=== PATIENT | male | born 1975 | race Caucasian/White ===

== ENCOUNTER 2019-09-16 08:53 | Emergency (ER) | payer MEDICARE, MEDICAID, SELFPAY ==
[2019-09-16 08:54] VITALS: BP 151/108; PULSE 127; RESP 22; TEMP 36.9; O2SAT 96; BMI 22.9
--- NOTE | 2019-09-16 08:57 | ED_ITS ---
HPI - Psych <Barbara Knight MD - Last Filed: 09/16/19 19:53> General Chief Complaint: Psychiatric Symptoms Stated Complaint: Schizophrenic, SI Time Seen by Provider: 09/16/19 08:56 Source: EMS Mode of arrival: other Limitations: altered mental status History of Present Illness HPI Narrative: Patient is brought to the emergency department by EMS after being found to be acting strangely at his dad's house. Patient has a history of paranoid schizophrenia and is normally on medication for this; however, the medics report that the patient's family told them that the patient has not been on his medications recently. They are not sure exactly what medications the patient normally takes. The patient is not able to relate this either. The patient does admit to hearing voices, but is not able to specify whether they are telling him to harm himself or not. The medics state that the family told them that the patient was suicidal. According to family report, the patient is fairly functional and stable when he is on his medications. They are not sure exactly how long he has been off the medications, though they feel it has not been more than a month. Patient is not able to offer any further information other than that she is not hurting her feeling sick at this time. The family did note that the patient has not slept in a few days. Medics state that the patient was cooperative en route. Patient has a history of smoking, but denies any other substance abuse. Related Data Home Medications Medication Instructions Recorded Confirmed aripiprazole 30 mg PO DAILY 09/17/19 09/17/19 bupropion HCl 150 mg PO DIRECTED 09/17/19 09/17/19 gemfibrozil 600 mg PO DIRECTED 09/17/19 09/17/19 hydroxyzine HCl 25 mg PO DIRECTED 09/17/19 09/17/19 melatonin 3 mg PO BEDTIME 09/17/19 09/17/19 metformin 500 mg PO DAILY 09/17/19 09/17/19 quetiapine 100 mg PO DIRECTED 09/17/19 09/17/19 quetiapine 300 mg PO DIRECTED 09/17/19 09/17/19 Previous Rx's Medication Instructions Recorded cyclobenzaprine 10 mg tablet 10 mg PO BEDTIME #30 tab 05/29/19 Allergies Allergy/AdvReac Type Severity Reaction Status Date / Time No Known Drug Allergies Allergy Unverified 09/16/19 08:54 Review of Systems <Barbara Knight MD - Last Filed: 09/16/19 19:53> Constitutional Constitutional: Denies chills, Denies fatigue, Denies fever(s), Denies frequent falls, Denies lethargy and Denies weakness Eyes Eyes: Denies change in vision, Denies eye discharge, Denies irritation and Denies loss of vision ENT Ears, Nose, Mouth, and Throat: Denies change in voice, Denies dizziness, Denies neck pain, Denies sore throat and Denies throat swelling Cardiovascular Cardiovascular: Denies chest pain, Denies irregular heart rhythm, Denies lightheadedness, Denies palpitations, Denies dyspnea, Denies dyspnea on exertion and Denies orthopnea Respiratory Respiratory: Denies cough, Denies dyspnea, Denies dyspnea on exertion and Denies wheezing Gastrointestinal Gastrointestinal: Denies abdominal pain, Denies change in bowel habits, Denies diarrhea, Denies nausea and Denies vomiting Genitourinary Genitourinary: Denies hematuria, Denies flank pain, Denies urinary incontinence and Denies urinary urgency Musculoskeletal Musculoskeletal: Denies back pain, Denies muscle weakness, Denies neck pain, Denies numbness and Denies tingling Integumentary/Breasts Skin/Breast: Denies pruritus, Denies erythema, Denies rash and Denies wounds Neurologic Neurologic: Reports behavioral changes, Reports confusion, Denies dizziness, Denies frequent falls, Denies loss of vision, Denies numbness, Denies tingling and Denies weakness Psychiatric Psychiatric: Denies anxiety, Reports behavioral changes, Reports confusion, Denies depression, Denies homicidal ideation and Reports suicidal ideation Endocrine Endocrine: Denies fatigue, Denies flushing and Denies palpitations Hematologic/Lymphatic Hematologic/Lymphatic: Denies easy bruising Allergic/Immunologic Allergic/Immunologic: Denies urticaria, Denies throat swelling and Denies wheezing Patient History <Barbara Knight MD - Last Filed: 09/16/19 19:53> Medical History (Updated 09/17/19 @ 18:42 by Geni Rodriguez DO) Schizophrenia (Acute) Social History Smoking Status: Current every day smoker Smoking Status: Current every day smoker Exam <Barbara Knight MD - Last Filed: 09/16/19 19:53> Initial Vital Signs Initial Vital Signs: Vital Signs Temperature 98.5 F 09/16/19 08:54 Pulse Rate 127 H 09/16/19 08:54 Respiratory Rate 22 09/16/19 08:54 Blood Pressure 151/108 H 09/16/19 08:54 Pulse Oximetry 96 09/16/19 08:54 Const General: cooperative and well developed Nutritional Appearance: well nourished Orientation: alert and awake HENNH Head: normocephalic and atraumatic Ears: external ears normal and TM's normal bilaterally Nose: external nose normal and No nasal discharge Face and sinus: sinuses nontender, face symmetric, no sinus tenderness and No dry mucous membranes Mouth: oral mucosae normal and moist mucous membranes Teeth and gingiva: dentition normal Throat: tonsils normal and uvula midline Eyes General: appearance normal, both eyes and all related structures Eyelids: eyelids normal Conjunctivae: conjunctivae normal Sclera: sclerae normal Pupils: PERRL EOM: EOM intact bilaterally Neck Neck: normal visual inspection, trachea midline, No lymphadenopathy, No midline deformity and No JVD Lymphatic: No lymphedema Chest Chest: normal inspection of the chest Resp Effort & Inspection: normal respiratory effort, able to speak in complete sentences, no respiratory distress and no use of accessory muscles Auscultation: clear to auscultation bilaterally, no rales, no rhonchi and no wheezes Cardio Rate: regular rate Rhythm: regular rhythm Heart Sounds: no click, no gallops, no murmurs and no rubs Pulses: normal peripheral pulses GI Inspection: non-distended Palpation: soft Back/Spine/Pelvis Back: No CVA tenderness Cervical Spine: cervical ROM normal and No pain with cervical ROM Thoracic/Lumbar Spine: thoracic and lumbar spine normal to inspection Skin General: no rashes or lesions noted, No jaundice and No petechiae Neuro General: alert, awake, gait normal and no focal motor deficits Speech: speech normal Other: The patient stares off, but does make eye contact when spoken to. He is cooperative but appears internally agitated and is tremulous. When asked a question, he replies ?um? and trails off. He will occasionally answer ?yes? or ?no?. Extrem General: full ROM, no clubbing, cyanosis or edema, no pedal edema and no calf tenderness Psych Appearance: well kempt Mental Status: mental status grossly normal Attitude: cooperative Thought Content: normal and suicidality Judgment: judgment good <Nahed Godinez DO - Last Filed: 09/19/19 18:46> Initial Vital Signs Initial Vital Signs: Vital Signs Temperature 98.5 F 09/16/19 08:54 Pulse Rate 127 H 09/16/19 08:54 Respiratory Rate 22 09/16/19 08:54 Blood Pressure 151/108 H 09/16/19 08:54 Pulse Oximetry 96 09/16/19 08:54 <Geni Rodriguez DO - Last Filed: 09/17/19 18:43> Initial Vital Signs Initial Vital Signs: Vital Signs Temperature 98.5 F 09/16/19 08:54 Pulse Rate 127 H 09/16/19 08:54 Respiratory Rate 22 09/16/19 08:54 Blood Pressure 151/108 H 09/16/19 08:54 Pulse Oximetry 96 09/16/19 08:54 Course <Barbara Knight MD - Last Filed: 09/16/19 19:53> Course Course Narrative: Patient was evaluated by myself in the emergency department up on arrival with EMS and police. He was actually quite cooperative, and did not require any restraints or sedatives. We did get the patient's records from the [facility], and I did give the patient doses of his Abilify and Seroquel that he had been put on on his last admission at the [facility]. The patient did not really show any improvement after administration these medications and I did have social work evaluate the patient. [facility] Patient's parents were present to give information and were agreeable to this plan. Patient is signed out to Dr. Godinez pending final acceptance of the patient for inpatient psychiatric treatment the [facility] tomorrow morning. Orders Ordered: Discontinued Medications Aripiprazole (Abilify) 30 mg PO NOW ONE Stop: 09/16/19 12:33 Last Admin: 09/16/19 12:49 Dose: 30 mg Documented by: KARINA Aripiprazole (Abilify) 30 mg PO DAILY VICKIE Last Admin: 09/17/19 08:55 Dose: 30 mg Documented by: SCANLINDSAYO Sodium Chloride (Normal Saline 0.9%) 1,000 mls @ 1,000 mls/hr IV BOLUS ONE Stop: 09/17/19 12:25 Last Infusion: 09/17/19 14:03 Dose: 0 mls/hr Documented by: Admin: 09/17/19 11:57 Dose: 1,000 mls/hr Documented by: ISATU Quetiapine Fumarate (Seroquel) 75 mg PO NOW ONE Stop: 09/16/19 12:33 Last Admin: 09/16/19 12:49 Dose: 75 mg Documented by: KARINA Quetiapine Fumarate (Seroquel) 75 mg PO DAILY [facility] Last Admin: 09/17/19 08:55 Dose: 75 mg Documented by: KARINA Vital Signs Vital signs: Vital Signs - 8 hr 09/17/19 11:15 09/17/19 14:06 09/17/19 18:02 Temperature 97.5 F L 98.7 F Pulse Rate 98 H 101 H Pulse Rate [Orthostatic Lying] 113 H Pulse Rate [Orthostatic Sitting] 117 H Pulse Rate [Orthostatic Standing] 131 H Respiratory Rate 16 19 Blood Pressure [Left Arm] 118/75 137/96 H Blood Pressure [Orthostatic Lying] 138/83 Blood Pressure [Orthostatic Sitting] 136/90 Blood Pressure [Orthostatic Standing] 122/90 Pulse Oximetry 99 98 <Nahed Godinez, - Last Filed: 09/19/19 18:46> Orders Ordered: Discontinued Medications Aripiprazole (Abilify) 30 mg PO NOW ONE Stop: 09/16/19 12:33 Last Admin: 09/16/19 12:49 Dose: 30 mg Documented by: KARINA Aripiprazole (Abilify) 30 mg PO DAILY [facility] Last Admin: 09/17/19 08:55 Dose: 30 mg Documented by: KARINA Sodium Chloride (Normal Saline 0.9%) 1,000 mls @ 1,000 mls/hr IV BOLUS ONE Stop: 09/17/19 12:25 Last Infusion: 09/17/19 14:03 Dose: 0 mls/hr Documented by: Admin: 09/17/19 11:57 Dose: 1,000 mls/hr Documented by: ISATU Quetiapine Fumarate (Seroquel) 75 mg PO NOW ONE Stop: 09/16/19 12:33 Last Admin: 09/16/19 12:49 Dose: 75 mg Documented by: KARINA Quetiapine Fumarate (Seroquel) 75 mg PO DAILY [facility] Last Admin: 09/17/19 08:55 Dose: 75 mg Documented by: KARINA Vital Signs Vital signs: Vital Signs - 8 hr 09/17/19 11:15 09/17/19 14:06 09/17/19 18:02 Temperature 97.5 F L 98.7 F Pulse Rate 98 H 101 H Pulse Rate [Orthostatic Lying] 113 H Pulse Rate [Orthostatic Sitting] 117 H Pulse Rate [Orthostatic Standing] 131 H Respiratory Rate 16 19 Blood Pressure [Left Arm] 118/75 137/96 H Blood Pressure [Orthostatic Lying] 138/83 Blood Pressure [Orthostatic Sitting] 136/90 Blood Pressure [Orthostatic Standing] 122/90 Pulse Oximetry 99 98 <Geni Rodriguez DO - Last Filed: 09/17/19 18:43> Orders Ordered: Discontinued Medications Aripiprazole (Abilify) 30 mg PO NOW ONE Stop: 09/16/19 12:33 Last Admin: 09/16/19 12:49 Dose: 30 mg Documented by: KARINA Aripiprazole (Abilify) 30 mg PO DAILY [facility] Last Admin: 09/17/19 08:55 Dose: 30 mg Documented by: KARINA Sodium Chloride (Normal Saline 0.9%) 1,000 mls @ 1,000 mls/hr IV BOLUS ONE Stop: 09/17/19 12:25 Last Infusion: 09/17/19 14:03 Dose: 0 mls/hr Documented by: Admin: 09/17/19 11:57 Dose: 1,000 mls/hr Documented by: ISATU Quetiapine Fumarate (Seroquel) 75 mg PO NOW ONE Stop: 09/16/19 12:33 Last Admin: 09/16/19 12:49 Dose: 75 mg Documented by: KARINA Quetiapine Fumarate (Seroquel) 75 mg PO DAILY [facility] Last Admin: 09/17/19 08:55 Dose: 75 mg Documented by: KARINA Vital Signs Vital signs: Vital Signs - 8 hr 09/17/19 11:15 09/17/19 14:06 09/17/19 18:02 Temperature 97.5 F L 98.7 F Pulse Rate 98 H 101 H Pulse Rate [Orthostatic Lying] 113 H Pulse Rate [Orthostatic Sitting] 117 H Pulse Rate [Orthostatic Standing] 131 H Respiratory Rate 16 19 Blood Pressure [Left Arm] 118/75 137/96 H Blood Pressure [Orthostatic Lying] 138/83 Blood Pressure [Orthostatic Sitting] 136/90 Blood Pressure [Orthostatic Standing] 122/90 Pulse Oximetry 99 98 MDM - Psych <Barbara Knight MD - Last Filed: 09/16/19 19:53> Medical Records Attestation: I reviewed the patient's medical records. Lab Data Attestation: I reviewed the patient's lab results. Result diagrams: 09/16/19 09:18 09/16/19 09:18 Labs: Lab Results 09/16/19 09/16/19 09/16/19 Range/Units 09:18 09:18 09:18 WBC 9.6 (4.5-11.0) X10^3/uL RBC 5.98 H (4.5-5.9) X10^6/uL Hgb 19.9 H (13.5-17.5) g/dL Hct 55.5 H (41-53) % MCV 92.9 (80-100) fL MCH 33.3 (26-34) PG MCHC 35.8 (30-36) % RDW 12.8 (11.6-14.8) % Plt Count 243 (150-400) X10^3/uL Neut % (Auto) 78.3 H (50-75) % Lymph % (Auto) 12.3 L (25-40) % [place] % (Auto) 9.0 (3-14) % Eos % (Auto) 0.1 L (2-4) % Baso % (Auto) 0.3 (0-2) % Neut # (Auto) 7500 H (0018-8027) /uL Lymph # (Auto) 1200 (5126-5255) /uL [place] # (Auto) 900 (0-900) /uL Eos # (Auto) 0 (0-450) /uL Baso # (Auto) 0 (0-100) /uL Sodium 139 (137-145) mmol/L Potassium 3.8 (3.4-5.1) mmol/L Chloride 97 L (98-107) mmol/L Carbon Dioxide 22 (22-32) mmol/L BUN 21 H (9-20) mg/dL Creatinine 0.90 (0.66-1.25) mg/dL Estimated GFR > 60.0 (>60) mL/min BUN/Creatinine Ratio 23.3 H (6-22) Glucose 189 H (70-100) mg/dL Calcium 10.4 H (8.4-10.2) mg/dL Total Bilirubin 1.8 H (0.2-1.3) mg/dL AST 39 (17-59) IU/L ALT 25 (<50) IU/L Alkaline Phosphatase 100 (38-126) U/L Total Protein 8.5 H (6.3-8.2) g/dL Albumin 5.5 H (3.5-5.0) g/dL Globulin 3.0 (1.7-4.1) g/dL Albumin/Globulin Ratio 1.8 (1.0-2.8) TSH 1.38 (0.47-4.68) uIU/mL U Morph 300 ng/mL cutoff (Negative) Ur Oxycodone Screen (Negative) Urine Methadone Screen (Negative) Ur Barbiturates Screen (Negative) U Tricyclic Antidepress (Negative) Ur Phencyclidine Scrn (Negative) Ur Amphetamines Screen (Negative) U Methamphetamines Scrn (Negative) Ur MDMA Scrn (Ecstasy) (Negative) U Benzodiazepines Scrn (Negative) [place] < 0.2 L (0.6-1.2) mmol/L Urine Cocaine Screen (Negative) U Marijuana (THC) Screen (Negative) Ethyl Alcohol < 10 ( - 10) mg/dL 09/16/19 Range/Units 10:05 WBC (4.5-11.0) X10^3/uL RBC (4.5-5.9) X10^6/uL Hgb (13.5-17.5) g/dL Hct (41-53) % MCV (80-100) fL MCH (26-34) PG MCHC (30-36) % RDW (11.6-14.8) % Plt Count (150-400) X10^3/uL Neut % (Auto) (50-75) % Lymph % (Auto) (25-40) % [place] % (Auto) (3-14) % Eos % (Auto) (2-4) % Baso % (Auto) (0-2) % Neut # (Auto) (8999-8170) /uL Lymph # (Auto) (6496-3499) /uL [place] # (Auto) (0-900) /uL Eos # (Auto) (0-450) /uL Baso # (Auto) (0-100) /uL Sodium (137-145) mmol/L Potassium (3.4-5.1) mmol/L Chloride (98-107) mmol/L Carbon Dioxide (22-32) mmol/L BUN (9-20) mg/dL Creatinine (0.66-1.25) mg/dL Estimated GFR (>60) mL/min BUN/Creatinine Ratio (6-22) Glucose (70-100) mg/dL Calcium (8.4-10.2) mg/dL Total Bilirubin (0.2-1.3) mg/dL AST (17-59) IU/L ALT (<50) IU/L Alkaline Phosphatase (38-126) U/L Total Protein (6.3-8.2) g/dL Albumin (3.5-5.0) g/dL Globulin (1.7-4.1) g/dL Albumin/Globulin Ratio (1.0-2.8) TSH (0.47-4.68) uIU/mL U Morph 300 ng/mL cutoff Negative (Negative) Ur Oxycodone Screen Negative (Negative) Urine Methadone Screen Negative (Negative) Ur Barbiturates Screen Negative (Negative) U Tricyclic Antidepress Positive H (Negative) Ur Phencyclidine Scrn Negative (Negative) Ur Amphetamines Screen Negative (Negative) U Methamphetamines Scrn Negative (Negative) Ur MDMA Scrn (Ecstasy) Negative (Negative) U Benzodiazepines Scrn Negative (Negative) [place] (0.6-1.2) mmol/L Urine Cocaine Screen Negative (Negative) U Marijuana (THC) Screen Negative (Negative) Ethyl Alcohol ( - 10) mg/dL <Nahed Godinez, - Last Filed: 09/19/19 18:46> Lab Data Attestation: I reviewed the patient's lab results. Labs: Lab Results 09/16/19 09/16/19 09/16/19 Range/Units 09:18 09:18 09:18 WBC 9.6 (4.5-11.0) X10^3/uL RBC 5.98 H (4.5-5.9) X10^6/uL Hgb 19.9 H (13.5-17.5) g/dL Hct 55.5 H (41-53) % MCV 92.9 (80-100) fL MCH 33.3 (26-34) PG MCHC 35.8 (30-36) % RDW 12.8 (11.6-14.8) % Plt Count 243 (150-400) X10^3/uL Neut % (Auto) 78.3 H (50-75) % Lymph % (Auto) 12.3 L (25-40) % [place] % (Auto) 9.0 (3-14) % Eos % (Auto) 0.1 L (2-4) % Baso % (Auto) 0.3 (0-2) % Neut # (Auto) 7500 H (2671-6248) /uL Lymph # (Auto) 1200 (5723-6238) /uL [place] # (Auto) 900 (0-900) /uL Eos # (Auto) 0 (0-450) /uL Baso # (Auto) 0 (0-100) /uL Sodium 139 (137-145) mmol/L Potassium 3.8 (3.4-5.1) mmol/L Chloride 97 L (98-107) mmol/L Carbon Dioxide 22 (22-32) mmol/L BUN 21 H (9-20) mg/dL Creatinine 0.90 (0.66-1.25) mg/dL Estimated GFR > 60.0 (>60) mL/min BUN/Creatinine Ratio 23.3 H (6-22) Glucose 189 H (70-100) mg/dL Calcium 10.4 H (8.4-10.2) mg/dL Total Bilirubin 1.8 H (0.2-1.3) mg/dL AST 39 (17-59) IU/L ALT 25 (<50) IU/L Alkaline Phosphatase 100 (38-126) U/L Total Protein 8.5 H (6.3-8.2) g/dL Albumin 5.5 H (3.5-5.0) g/dL Globulin 3.0 (1.7-4.1) g/dL Albumin/Globulin Ratio 1.8 (1.0-2.8) TSH 1.38 (0.47-4.68) uIU/mL U Morph 300 ng/mL cutoff (Negative) Ur Oxycodone Screen (Negative) Urine Methadone Screen (Negative) Ur Barbiturates Screen (Negative) U Tricyclic Antidepress (Negative) Ur Phencyclidine Scrn (Negative) Ur Amphetamines Screen (Negative) U Methamphetamines Scrn (Negative) Ur MDMA Scrn (Ecstasy) (Negative) U Benzodiazepines Scrn (Negative) [place] < 0.2 L (0.6-1.2) mmol/L Urine Cocaine Screen (Negative) U Marijuana (THC) Screen (Negative) Ethyl Alcohol < 10 ( - 10) mg/dL 09/16/19 Range/Units 10:05 WBC (4.5-11.0) X10^3/uL RBC (4.5-5.9) X10^6/uL Hgb (13.5-17.5) g/dL Hct (41-53) % MCV (80-100) fL MCH (26-34) PG MCHC (30-36) % RDW (11.6-14.8) % Plt Count (150-400) X10^3/uL Neut % (Auto) (50-75) % Lymph % (Auto) (25-40) % [place] % (Auto) (3-14) % Eos % (Auto) (2-4) % Baso % (Auto) (0-2) % Neut # (Auto) (9813-5070) /uL Lymph # (Auto) (2365-0338) /uL [place] # (Auto) (0-900) /uL Eos # (Auto) (0-450) /uL Baso # (Auto) (0-100) /uL Sodium (137-145) mmol/L Potassium (3.4-5.1) mmol/L Chloride (98-107) mmol/L Carbon Dioxide (22-32) mmol/L BUN (9-20) mg/dL Creatinine (0.66-1.25) mg/dL Estimated GFR (>60) mL/min BUN/Creatinine Ratio (6-22) Glucose (70-100) mg/dL Calcium (8.4-10.2) mg/dL Total Bilirubin (0.2-1.3) mg/dL AST (17-59) IU/L ALT (<50) IU/L Alkaline Phosphatase (38-126) U/L Total Protein (6.3-8.2) g/dL Albumin (3.5-5.0) g/dL Globulin (1.7-4.1) g/dL Albumin/Globulin Ratio (1.0-2.8) TSH (0.47-4.68) uIU/mL U Morph 300 ng/mL cutoff Negative (Negative) Ur Oxycodone Screen Negative (Negative) Urine Methadone Screen Negative (Negative) Ur Barbiturates Screen Negative (Negative) U Tricyclic Antidepress Positive H (Negative) Ur Phencyclidine Scrn Negative (Negative) Ur Amphetamines Screen Negative (Negative) U Methamphetamines Scrn Negative (Negative) Ur MDMA Scrn (Ecstasy) Negative (Negative) U Benzodiazepines Scrn Negative (Negative) [place] (0.6-1.2) mmol/L Urine Cocaine Screen Negative (Negative) U Marijuana (THC) Screen Negative (Negative) Ethyl Alcohol ( - 10) mg/dL MDM Narrative Medical decision making narrative: Patient signed out to myself by Dr. Knight. Patient seen and evaluated by myself. Patient alert, walking around room. He does seem to have a lot of internal stimuli, very few word answers. I did update him on the plan for overnight. We also discussed if he needs any other medications which he defers. He did have his regular medications earlier today. Patient has been cooperative throughout stay. Patient does seem to be gravely disabled but voluntary at this time. Per Dr. Knight/social work plan there is supposed to be a bed available at the [facility] in the morning. Social work to see again after 7am. Secondary option is [facility]. Patient signed out to Dr. Rodriguez. <Geni Rodriguez, DO - Last Filed: 09/17/19 18:43> Lab Data Labs: Lab Results 09/16/19 09/16/19 09/16/19 Range/Units 09:18 09:18 09:18 WBC 9.6 (4.5-11.0) X10^3/uL RBC 5.98 H (4.5-5.9) X10^6/uL Hgb 19.9 H (13.5-17.5) g/dL Hct 55.5 H (41-53) % MCV 92.9 (80-100) fL MCH 33.3 (26-34) PG MCHC 35.8 (30-36) % RDW 12.8 (11.6-14.8) % Plt Count 243 (150-400) X10^3/uL Neut % (Auto) 78.3 H (50-75) % Lymph % (Auto) 12.3 L (25-40) % [place] % (Auto) 9.0 (3-14) % Eos % (Auto) 0.1 L (2-4) % Baso % (Auto) 0.3 (0-2) % Neut # (Auto) 7500 H (7497-8540) /uL Lymph # (Auto) 1200 (1793-2631) /uL [place] # (Auto) 900 (0-900) /uL Eos # (Auto) 0 (0-450) /uL Baso # (Auto) 0 (0-100) /uL Sodium 139 (137-145) mmol/L Potassium 3.8 (3.4-5.1) mmol/L Chloride 97 L (98-107) mmol/L Carbon Dioxide 22 (22-32) mmol/L BUN 21 H (9-20) mg/dL Creatinine 0.90 (0.66-1.25) mg/dL Estimated GFR > 60.0 (>60) mL/min BUN/Creatinine Ratio 23.3 H (6-22) Glucose 189 H (70-100) mg/dL Calcium 10.4 H (8.4-10.2) mg/dL Total Bilirubin 1.8 H (0.2-1.3) mg/dL AST 39 (17-59) IU/L ALT 25 (<50) IU/L Alkaline Phosphatase 100 (38-126) U/L Total Protein 8.5 H (6.3-8.2) g/dL Albumin 5.5 H (3.5-5.0) g/dL Globulin 3.0 (1.7-4.1) g/dL Albumin/Globulin Ratio 1.8 (1.0-2.8) TSH 1.38 (0.47-4.68) uIU/mL U Morph 300 ng/mL cutoff (Negative) Ur Oxycodone Screen (Negative) Urine Methadone Screen (Negative) Ur Barbiturates Screen (Negative) U Tricyclic Antidepress (Negative) Ur Phencyclidine Scrn (Negative) Ur Amphetamines Screen (Negative) U Methamphetamines Scrn (Negative) Ur MDMA Scrn (Ecstasy) (Negative) U Benzodiazepines Scrn (Negative) [place] < 0.2 L (0.6-1.2) mmol/L Urine Cocaine Screen (Negative) U Marijuana (THC) Screen (Negative) Ethyl Alcohol < 10 ( - 10) mg/dL 09/16/19 Range/Units 10:05 WBC (4.5-11.0) X10^3/uL RBC (4.5-5.9) X10^6/uL Hgb (13.5-17.5) g/dL Hct (41-53) % MCV (80-100) fL MCH (26-34) PG MCHC (30-36) % RDW (11.6-14.8) % Plt Count (150-400) X10^3/uL Neut % (Auto) (50-75) % Lymph % (Auto) (25-40) % [place] % (Auto) (3-14) % Eos % (Auto) (2-4) % Baso % (Auto) (0-2) % Neut # (Auto) (2725-3271) /uL Lymph # (Auto) (6461-5704) /uL [place] # (Auto) (0-900) /uL Eos # (Auto) (0-450) /uL Baso # (Auto) (0-100) /uL Sodium (137-145) mmol/L Potassium (3.4-5.1) mmol/L Chloride (98-107) mmol/L Carbon Dioxide (22-32) mmol/L BUN (9-20) mg/dL Creatinine (0.66-1.25) mg/dL Estimated GFR (>60) mL/min BUN/Creatinine Ratio (6-22) Glucose (70-100) mg/dL Calcium (8.4-10.2) mg/dL Total Bilirubin (0.2-1.3) mg/dL AST (17-59) IU/L ALT (<50) IU/L Alkaline Phosphatase (38-126) U/L Total Protein (6.3-8.2) g/dL Albumin (3.5-5.0) g/dL Globulin (1.7-4.1) g/dL Albumin/Globulin Ratio (1.0-2.8) TSH (0.47-4.68) uIU/mL U Morph 300 ng/mL cutoff Negative (Negative) Ur Oxycodone Screen Negative (Negative) Urine Methadone Screen Negative (Negative) Ur Barbiturates Screen Negative (Negative) U Tricyclic Antidepress Positive H (Negative) Ur Phencyclidine Scrn Negative (Negative) Ur Amphetamines Screen Negative (Negative) U Methamphetamines Scrn Negative (Negative) Ur MDMA Scrn (Ecstasy) Negative (Negative) U Benzodiazepines Scrn Negative (Negative) [place] (0.6-1.2) mmol/L Urine Cocaine Screen Negative (Negative) U Marijuana (THC) Screen Negative (Negative) Ethyl Alcohol ( - 10) mg/dL MDM Narrative Medical decision making narrative: Patient signed out to me by Dr. Godinez. Seen evaluated he has overall been very cooperative and no trouble in the emergency department. [facility] concerned with her persistent tachycardia requested EKG orthostatics. Orthostatics were positive he had increased heart rate he was given an IV and normal saline which did improve his heart rate significantly patient was finally accepted at the [facility] arrangements were made by the [facility] for [facility] at 8:00 p.m.. Discharge Plan Departure Patient Disposition: Xfer Psychiatric Hosp Clinical Impression: Schizophrenia Qualifiers: Schizophrenia type: unspecified Qualified Code(s): F20.9 - Schizophrenia, unspecified Discharge Date/Time: 09/17/19 19:59
[2019-09-16 09:29] LABS: Add Manual Diff / Slide Review NO; Basophils Absolute Auto 0 /uL (0-100); Basophils Percent Auto 0.3 % (0-2); Eosinophils Absolute Auto 0 /uL (0-450); Eosinophils Percent Auto 0.1 % (2-4); Hematocrit 55.5 % (41-53); Hemoglobin 19.9 g/dL (13.5-17.5); Lymphocytes Absolute Auto 1200 /uL (1100-4500); Lymphocytes Percent Auto 12.3 % (25-40); Mean Corpuscular HGB Conc 35.8 % (30-36); Mean Corpuscular Hemoglobin 33.3 PG (26-34); Mean Corpuscular Volume 92.9 fL (80-100); Monocytes Absolute Auto 900 /uL (0-900); Neutrophils Absolute Auto 7500 /uL (1500-7000); Neutrophils Percent Auto 78.3 % (50-75); Platelet Count 243 X10^3/uL (150-400); Red Blood Cell Count 5.98 X10^6/uL (4.5-5.9); Red Cell Distribution Width 12.8 % (11.6-14.8); White Blood Cell Count 9.6 X10^3/uL (4.5-11.0)
[2019-09-16 09:36] LABS: Alanine Aminotransferase 25 IU/L (<50); Albumin 5.5 g/dL (3.5-5.0); Albumin Globulin Ratio 1.8 (1.0-2.8); Alkaline Phosphatase 100 U/L (38-126); Aspartate Aminotransferase 39 IU/L (17-59); BUN Creatinine Ratio 23.3 (6-22); Bilirubin Total 1.8 mg/dL (0.2-1.3); Blood Urea Nitrogen 21 mg/dL (9-20); Calcium 10.4 mg/dL (8.4-10.2); Carbon Dioxide 22 mmol/L (22-32); Chloride 97 mmol/L (98-107); Estimated Glomerular Filt Rate > 60.0 mL/min (>60); Ethanol (ETOH) < 10 mg/dL; Glucose 189 mg/dL (70-100); HEMOLYSIS < 15 (0-50); Potassium 3.8 mmol/L (3.4-5.1); Sodium 139 mmol/L (137-145); Total Protein 8.5 g/dL (6.3-8.2)
[2019-09-16 09:54] LABS: Lithium < 0.2 mmol/L (0.6-1.2)
[2019-09-16 10:12] LABS: Thyroid Stimulating Hormone 1.38 uIU/mL (0.47-4.68)
[2019-09-16 10:15] LABS: UR Morphine/Opiate cutoff 300 Negative (Negative); Ur Creatinine 50 (Normal); Ur Specific Gravity 1.025 (Normal); Urine Amphetamines Negative (Negative); Urine Barbiturates Negative (Negative); Urine Benzodiazepines Negative (Negative); Urine Cocaine Negative (Negative); Urine MDMA Negative (Negative); Urine Methadone Negative (Negative); Urine Methamphetamines Negative (Negative); Urine Phencyclidine Negative (Negative); Urine Tetrahydrocannabinol Negative (Negative); Urine pH 5 (Normal)
[2019-09-16 10:16] LABS: Urine Oxycodone Negative (Negative); Urine Tricyclic Antidepressant Positive (Negative)
--- NOTE | 2019-09-16 10:19 | PC.NURSE ---
pts dad Burton at bedside. Burton reports pt acting strange for the past few days. pt complaining to his dad that he is hearing torture music by amelia clemente. pt reported to Burton that he has not taken his medications for about 6 days. dad also reports pt was inpatient at [facility] for 2 weeks about 6 months ago.
[2019-09-16] MEDS: QUETIAPINE 25 MG TABLET 75 MG PO (12:49)
[2019-09-16] MEDS: ARIPiprazole 10 MG TABLET 30 MG PO (12:49)
--- NOTE | 2019-09-16 15:03 | CM.SWNOTE ---
BULLDOZER PRESS OPERATOR/Note: Received request from ED/MD Dr. Carbajal requesting BULLDOZER PRESS OPERATOR consult for this 44yr old male whom came to [facility] via EMS with psychiatric symptoms. Patient currently placed in room #13. Reviewed notes from ED provider and from last inpatient psychiatric hospitalization at [facility] in [place]. Patient and family report that patient stopped taking his psychiatric medications about 6dys ago. Father/Burton reports that he found out about this when patient's behavior had changed and he has not slept for the last 3dys. Family reports when patient is actively taking his medications he is very functioning. Patient lives in apartment and drives when stable. Last inpatient psychiatric placement was in December 2018. Family reports that patient receives all psychiatric care from the [facility] in [place] and [place]. BULLDOZER PRESS OPERATOR attempted to meet with patient to explain role. Patient pacing in room and unable to give direct eye contact. Patient admits to hearing Hudam Husan over load speaker/surround sound. Patient unable to give full answers to questions being asked. Patient cannot give BULLDOZER PRESS OPERATOR clear answer on whether or not he was suicidal. However, patient agreeable to inpatient medication stabilization. MD shaffer and СЕРГЕЙ/Marcela attempting placement this pm at [facility]. Family aware that is no bed available at [facility] by tomorrow will need to attempt other placement options. P: [facility] and would be best suited to obtain placement [facility]. WADE Santo BULLDOZER PRESS OPERATOR - Education Sales Consultant Assessment BULLDOZER PRESS OPERATOR - Education Sales Consultant Assessment Start: 09/16/19 14:43 Freq: Status: Active Protocol: Document 09/16/19 14:44 KJS (Rec: 09/16/19 15:03 KJS [id number]) BULLDOZER PRESS OPERATOR/Education Sales Consultant Assessment Time Spent with Patient Start date 09/16/19 Visit Start Time 14:44 Total time Care Management spent on 90 minutes patient visit-in minutes Mental Health Screening Include Onset, Duration, Intensity Presenting Problem Psychiatric Symptoms Precipitating Event(s) Paranoid schizophrenic episodes. Currently having hallucinations. Current Behavioral Health Provider(s) [facility] [place] Sees Include Facility, Provider, Ph. # every 3 months, name unknown? Psych. Hx Mental Health and Chemical Previous psychiatric Dependency hospitalization from 12-25-18 thru 01-09-19 at [facility]. Family Hx of Behavioral Abuse None known Psychiatric Hospitalizations (date(s)/ [facility] 12-25-18 thru 01-09-19 location) Support System(s) Danny Augustin phone# [phone] or [phone] School/Work None Substance Abuse Screening Include Onset, Duration, Intensity Presenting Problem Patient actively having hallucinations and decompensation after he stopped taking psychiatric medications approximately 6 days ago. Precipitating Event(s) Unclear. Patient difficult to assess due to inability to concentrate. Patient reports hearing music (Hudam Husan) playing over loud speaker/ surround sound. Current Behavioral Health Provider(s) [facility] Include Facility, Provider, Ph. # Rehab Facilities? ((Date(s), Location(s) See above/[place] [facility]. ) History of Withdrawal? Seizures? No Longest Period of Sobriety Unknown Psychosocial Information Lives alone and is very high functioning when he takes his pychiatric medicaitons. Per family, patient drives at baseline. Legal Concerns Legal Matters - Outstanding Issues Unknown Mental Status Orientation (Person/Place/Time) No Affect Mood flat. Patient appears very restless. Significant distraction related to his auditory hallucinations Thought Content - Specify/Describe Hallucinations Obsessions, Delusions, Hallucinations Thought Processes (Pgpefkc-Cdkjewhm-Ljas Disorganized secondary Mxjwiway-Zpprzomv-Nhkaqljegy- hallucinations. Wdrppgqyahbbvw-Qtwfvfk-Peqzpotrckgw- Thought Blocking) Speech (Zarbam-Dine-Trdvjkg-Rapid-Soft- Slow Loud-Pressured) Motor (Pfylsb-Yfmafdjdb-Kurh-Other) Slow Insight (Present-Partially Present- Impaired Impaired) Judgement (Intact-Impaired) Impaired Impulse Control (Adequate-Impaired) Unknown at this time. Memory (Fiyjswcel-Jpwoea-Czholg, Impaired Impaired-Intact) Concentration (Intact-Impaired) Impaired Attention (Intact-Impaired) Impaired Behavior (Appropriate-Inappropriate) Inappropriate pacing around room. Unable to sleep x3dys. Risk Assessment Suicidal Ideation (Plan) Unknown unable to determine Homicidal Ideation (Plan) No Comment Patient does agree to inpatient psychiatric placement for medication stablization. All prior services have been received at [facility] therefore, placement at [facility] will be prioroity for continuity of care. Intervention Intervention Attempting voluntary psychiatric placement at [facility] facility.
[2019-09-16 16:00] VITALS: BP 126/91; PULSE 135; RESP 16; O2SAT 99
--- NOTE | 2019-09-16 17:46 | CM.SWNOTE ---
CM/clinical services specialist note continued: CM/RN Sent clinicals to [facility] emergency Psychiatric care to review for possible inpatient placement. [facility] social media marketing manager called CM/RN back to let us know they are not able to accept the patient tonight do to lack of staffing and bed availability but believes they will be able to accept the patient in the morning 09/17/2019 for voluntary inpatient treatment. Nahed Moreno rail signal worker for psychiatric admissions will be available at 7am tomorrow to review patients clinicals and accept patient for treatment. Phone number is [phone]. CM/RN will let WADE Dominguez know to contact the VA in the morning when she arrives at 7:45am to determine plan for placement with the [facility] in [place]. CM/RN contacted patients mother Divina and let her know what the [facility] said about possible placement. Patients mother and father would like WADE dominguez to call them in the morning and keep them updated. Marcela Cunningham RN
[2019-09-16 23:28] VITALS: BP 132/92; PULSE 130; RESP 18; TEMP 36.6; O2SAT 96
[2019-09-17 06:08] VITALS: BP 127/92; PULSE 111; RESP 18; O2SAT 98
[2019-09-17 08:25] VITALS: BP 144/99; PULSE 115; RESP 18; TEMP 36.3; O2SAT 98
[2019-09-17] MEDS: ARIPiprazole 10 MG TABLET 30 MG PO (08:55)
[2019-09-17] MEDS: QUETIAPINE 25 MG TABLET 75 MG PO (08:55)
--- NOTE | 2019-09-17 09:23 | CM.SWNOTE ---
WADE Note: Reviewed evening notes. Patients remains in Emergency Department room#13. Placed call to [facility] psychiatric admit line [phone], spoke with Nahed. She reports that [facility] provider will review the information at 9:00AM. They do have beds but patient has not yet been accepted. Nahed from [facility] faxed consent form to be signed by patient and returned. She is also requesting to speak with patient regarding his voluntary status. Both completed. Met with patient and father/Burton updating them on the above. If accepted, Dr. Hien Alves will be accepting MD and [facility] will coordinate transport. P: Awaiting final acceptance from [facility] inpatient psychiatric care for bed. WADE Santo
[2019-09-17 10:31] VITALS: BP 139/96; PULSE 110; RESP 18; TEMP 37.2; O2SAT 97
[2019-09-17 11:15] VITALS: BP 122/90; BP 136/90; BP 138/83; PULSE 113; PULSE 117; PULSE 131
[2019-09-17] MEDS: SODIUM CHLORIDE 0.9% 1,000 ML 1000 ML IV (11:57)
[2019-09-17 14:06] VITALS: BP 118/75; PULSE 98; RESP 16; TEMP 36.4; O2SAT 99
--- NOTE | 2019-09-17 15:19 | CM.SWNOTE ---
GREY WASHER Note: Reviewed chart. Spoke with Dr. Rodriguez this AM. She reports patient medically stable for transfer to inpatient psychiatric hospital. Per notes, [facility] [place] expecting to have bed this AM. Dr. Hien Alves accepting physician. Placed call to [facility] and spoke with Nahed. She reports that MD will review for admit at approximately 9:00am. Updated clinical faxed per Nahed's request. Received return phone call from [facility] requesting EKG, and updated vitals faxed to [facility]. Faxed both and received call back indicating that they have medical concerns accepting patient with current blood pressures. Dr. Rodriguez notified and placed call to [facility] to discuss with provider. IV fluids provided to patient and within a few hours BP normalized. Received final call from [facility] around 1:30pm. They have accepted patient for today. Transport to be arranged by [facility]. supervisor shipping room scheduled for 8:00pm. RN to call report [phone]. GREY WASHER placed call to patient's father/Burton updating him on the above. Father very appreciative of all work done by . staff. Consent for treatment from [facility] faxed to [facility] for patient to initial and sign. All completed and faxed back to [facility]. P: [facility] psychiatric hospital today. supervisor shipping room arranged by [facility] and scheduled for 8:00pm. WADE Santo
--- NOTE | 2019-09-17 17:09 | PC.NURSE ---
Report called to [facility] facility at provided number to Flora PORTER.
[2019-09-17 18:02] VITALS: BP 137/96; PULSE 101; RESP 19; TEMP 37.1; O2SAT 98
== END 2019-09-17 19:59 ==
PROVIDERS: Emergency Medicine; Emergency Provider Emergency Medicine
DX: F20.9 Schizophrenia, unspecified (principal); R00.0 Tachycardia, unspecified
CPT/HCPCS: 80053; 80178; 80305; 80320; 84443; 85025; 93005; 93010; 96360; 96361; 99285